=== PATIENT | male | born 1950 | race Caucasian/White ===

== ENCOUNTER 2021-12-22 17:45 | Emergency (ER) | payer OTHER ==
[~2021-12-22] VITALS: Ht 167.6 cm; Wt 87.0 kg
[2021-12-22] MEDS ORDERED: TRAMADOL HCL/ACETAMINOPHEN 37.5/325MG TABLET PO ONE (19:30)
[2021-12-22 20:00] VITALS: BP 126/84
[2021-12-22] MEDS ORDERED: MELO-105 MT ×3 (23:22→23:31)
== END 2021-12-23 00:24 | disposition home or self-care (01) ==
LOC: ER 17:45
DX: M17.11 Unilateral primary osteoarthritis, right knee (principal); F03.90 Unspecified dementia, unspecified severity, without behavioral disturbance, psychotic disturbance, mood disturbance, and anxiety; I25.2 Old myocardial infarction; I10 Essential (primary) hypertension; E78.00 Pure hypercholesterolemia, unspecified; Z91.81 History of falling
CPT/HCPCS: 73562; 99283